=== PATIENT | female | born 1955 | race African-American/Black ===

== ENCOUNTER 2019-02-06 22:08 | Inpatient (IN) | payer MEDICARE, MEDICAID, SELFPAY ==
--- NOTE | ~2019-02-06 | XR_ITS ---
EXAMINATION: XR chest 2V DATE: 02/06/2019 23:22 INDICATION: Cough and shortness of breath TECHNIQUE: PA and lateral views of the chest are obtained. COMPARISON: 06/26/2015 FINDINGS: The lungs are hyperinflated. There are airspace opacities in the right middle and lower lob es. There is no pleural effusion or pneumothorax. The cardiomediastinal silhouette is normal. Surgica l clips are again noted in the medial left breast. There is mild thoracic spondylosis. IMPRESSION: 1. Airspace opacities of the right middle and lower lobes, likely pneumonia. Reviewed, dictated and finalized at location A. ER INSPECTOR
--- NOTE | ~2019-02-06 | CT_ITS ---
EXAMINATION: CTA chest PE protocol DATE: 02/08/2019 09:35 INDICATION: Shortness of breath. Pneumonia. TECHNIQUE: Computed tomography angiography (CTA) of the chest was performed with 100 mL Omnipaque-350 intravenous contrast timed to evaluate the pulmonary arteries. Coronal maximum intensity projection 3D-reconstructions were created by the technologist. Automated exposure control and iterative reconst ruction technique were employed. The dose-length product was 149.91 mGy-cm. COMPARISON: Chest 2 views 02/06/2019 FINDINGS: There is mild scarring at the lung apices. There is mild bronchiectasis in the lungs with a n inferior predominance. There is mucous plugging in lingula. There are tree-in-bud opacities and arthur trilobular nodules in lingula. There are airspace and groundglass opacities, centrilobular nodules, a nd tree-in-bud opacities in right lower lobe and right middle lobe. There is mucous plugging in right lower lobe. No pleural effusion. The heart size is normal. No pericardial effusion. There are sutton ry artery calcifications. There is no pulmonary embolus. Subcarinal lymphadenopathy is noted. There i s thoracic levocurvature and mild spondylosis. IMPRESSION: 1. No pulmonary embolus. 2. Pneumonia involving right lower lobe, right middle lobe, and lingula. 3. Mild bronchiectasis in the lungs with a lower lung predominance, likely secondary to repeated infe ctions. 4. Subcarinal lymphadenopathy, likely reactive. Reviewed, dictated and finalized at location A. RIAL HANDLER 1ST SHIFT IMPRESSION: 1. No pulmonary embolus. 2. Pneumonia involving right lower lobe, right middle lobe, and lingula. 3. Mild bronchiectasis in the lungs with a lower lung predominance, likely seco ndary to repeated infections. 4. Subcarinal lymphadenopathy, likely reactive.
[2019-02-06 22:09] VITALS: BP 131/79; PULSE 120; RESP 22; TEMP 38.6; O2SAT 96
--- NOTE | 2019-02-06 22:31 | ED.URI ---
HPI - URI/Sore Throat General Chief Complaint: Upper Respiratory Infection Stated Complaint: congestion/cough Time Seen by Provider: 02/06/19 22:28 Source: patient and RN notes reviewed Mode of arrival: ambulatory Limitations: no limitations History of Present Illness HPI Narrative: Pt is a 63 y/o female presenting to the ED c/o cough. Pt reports she has been experiencing a productive cough with green phlegm for more than a week, and notes it has recently worsened. Pt also reports SOB at rest, bilateral rib pain, palpitations, wheezing, rhinorrhea, and congestion, but denies N/V, ST, or diarrhea. Pt states she has a Hx of Chelonae, but notes she has not been keeping up with her treatments due to having cancer. Pt notes she currently has cancer in her lymph nodes, and reports she was cancer free for 17 years from having Breast Cancer with metastasis to her Kidney and Colon. Pt states her Oncologist is Dr. Beebe at [facility], and she last had Chemotherapy a few months ago. Pt states she also has a Hx of PNA, but denies Hx's of ID, cardiac stents, CHF, smoking, alcohol use, or drug use. Pt states she has positive sick contact with her grandson who has cold Sx's. Pertinent past history: pneumonia and other (Chelonae) Onset (ago): week(s) ( More than 1 ) Consistency: progressively worsening Description of mucous: green Context: sick contacts (Grandson has cold Sx's) Associated symptoms: rhinorrhea, nasal congestion, shortness of breath and other (Bilateral rib pain; palpitations; wheezing) Related Data Allergies Allergy/AdvReac Type Severity Reaction Status Date / Time No Known Allergies Allergy Unverified 06/28/17 11:24 Review of Systems Review of Systems: All systems reviewed & are unremarkable except as noted in HPI and below ENT: Reports nasal congestion, Denies sore throat and Reports other (Rhinorrhea) Cardiovascular: Cardiovascular: Reports palpitations Respiratory: Respiratory: Reports cough (Productive with green phlegm), Reports dyspnea and Reports wheezing Gastrointestinal: Gastrointestinal: Denies diarrhea, Denies nausea and Denies vomiting Musculoskeletal: Musculoskeletal: Reports other (Bilateral rib pain) [facility] Past Medical History Medical History (Updated 02/07/19 @ 04:07 by Jigna Ireland MD) Breast cancer With metastasis to Colon and Kidney Depression History of chemotherapy Lymph node cancer Mycobacterium chelonae infection Pneumonia Surgical History Surgical History History of History of intestinal surgery Colon resection due to cancer History of modified radical mastectomy of left breast Social History Social History Smoking status: Never smoker Alcohol intake: never Substance use: never Gender identity (if verbalized by the patient): Female Exam Const: General: no acute distress and alert; No ill appearing Orientation/consciousness: oriented x3 HENMT: Head: normal to inspection, no palpable skull fracture and normocephalic Ears: hearing grossly normal bilaterally, external ears normal and TM's normal bilaterally General nose exam: external nose normal Face and sinus: normal facial exam and sinuses nontender Mouth: Yes moist mucous membranes Teeth and gingiva: edentulous Throat: posterior oropharynx normal and uvula midline Eyes: Conjunctivae: conjunctivae normal Pupils: PERRL Chest: Chest palpation & inspection: normal inspection of the chest Resp: Effort & Inspection: normal respiratory effort Auscultation: clear to auscultation bilaterally, no rales, no rhonchi and no wheezes Cardio: Rate: tachycardic Rhythm: regular rhythm Heart sounds: no murmurs GI: GI Palp: Yes soft, No tender, No guarding and No rigid Skin: General skin exam: normal color Rashes: no rashes Neuro: General: oriented x3, moves all extremities and CN's II-XI intact bilaterally Ex
--- NOTE | 2019-02-06 22:35 | ECG_ITS ---
Measurements Intervals [place] Rate: 104 P: 67 CO: 157 QRS: 54 QRSD: 77 T: 79 QT: 333 QTc: 439 Interpretive Statements SINUS TACHYCARDIA POSSIBLE LEFT ATRIAL ENLARGEMENT POSSIBLE LEFT VENTRICULAR HYPERTROPHY BORDERLINE ST-T WAVE ABNORMALITY- LATERAL LEADS ABNORMAL ECG Electronically Signed On 02-07-2019 6:59:18 OPERATIONS VICE PRESIDENT by Estuardo Barrett D.O.
[2019-02-06 22:40] VITALS: PULSE 102; RESP 20
[2019-02-06] MEDS: ALBUTEROL SULFATE NEB 2.5 MG/0.5 ML INH 5 MG INHALATION (22:50)
[2019-02-06] MEDS: SODIUM CHLORIDE 0.9% IV 1,000 ML 999 ML IV CONT (22:50)
[2019-02-06 22:55] VITALS: PULSE 101; RESP 20
[2019-02-06 23:02] VITALS: PULSE 98; RESP 20
[2019-02-06 23:03] LABS: Basophils Percent Auto 0.3 % (0.2-1.2); Eosinophils Percent Auto 0.1 % (0-4.4); Hematocrit 39.4 % (37.0-47.0); Hemoglobin 12.4 g/dL (12.0-15.0); Immature Granulocyte Absolute 0.03 K/mm3 (0.00-0.031); Immature Granulocyte Percent A 0.3 % (0-0.5); Lymphocytes Absolute Auto 0.63 K/mm3 (0.9-3.2); Lymphocytes Percent Auto 5.8 % (18.3-44.2); Mean Corpuscular HGB Conc 31.5 g/dl (32-36); Mean Corpuscular Hemoglobin 29.1 pg (26-34); Mean Corpuscular Volume 92.5 fl (80-100); Mean Platelet Volume 9.6 fl (7.4-10.4); Monocytes Absolute Auto 0.7 K/mm3 (0.1-0.6); Monocytes Percent Auto 6.2 % (2.6-8.5); Neutrophils Absolute Auto 9.5 K/mm3 (1.3-6.7); Neutrophils Percent Auto 87.3 % (45.5-73.1); Platelet Count Result 404 k/mm3 (150-375); Red Blood Count 4.26 M/mm3 (4.2-5.4); Red Cell Distribution Width 14.1 % (11.5-14.5); White Blood Count 10.8 K/mm3 (4.5-10.0)
[2019-02-06 23:16] LABS: Alanine Aminotransferase 13 U/L (4-35); Albumin Level 3.9 g/dL (3.5-5.1); Alkaline Phosphatase 102 U/L (38-126); Aspartate Amino Transferase 19 U/L (14-36); Bilirubin,Total 0.5 mg/dL (0.2-1.3); Blood Urea Nitrogen 14 mg/dL (7-17); Calcium 9.1 mg/dL (8.4-10.2); Carbon Dioxide 31 mmol/L (22-30); Chloride 101 mmol/L (98-107); Estimated Glomerular Filt Rate > 60; Glucose 151 mg/dL (65-105); Potassium 3.6 mmol/L (3.4-5.0); Sodium 140 mmol/L (137-145)
[2019-02-07] VITALS (16 sets, daily range): BP systolic 105–124; BP diastolic 62–77; PULSE 90–106; RESP 16–23; TEMP 37.2–38.7; O2SAT 93–100; BMI 17.6
[2019-02-07 00:52] LABS: Add Urine Microscopic? NO; Appearance Urine Clear (Clear); Bilirubin Urine Negative (Negative); Blood Urine Negative (Negative); Color Urine Straw (Yellow); Glucose Urine UA Negative (Negative); Ketones Urine Negative (Negative); Leukocyte Esterase Ur Negative LEU/UL (Negative); Nitrate Urine Negative (Negative); Protein Urine Negative (Negative); Specific Grav Ur 1.011 (1.001-1.035); Urobilinogen Urine Negative mg/dL (<2.0)
[2019-02-07] MEDS: LACTATED RINGERS 1,000 ML 125 ML IV CONT ×2 (04:04→18:35)
--- NOTE | 2019-02-07 04:56 | ADMGEN ---
This patient, Sandy Singer, was admitted to 2 Medical Room 254-01. Patient/family oriented to hospital policies and general routines including ID bracelet, bed and alarms, visiting hours, pain management, procedures, bathroom and other care routines, personal items, smoking policy, room service/diet, and visiting hours. Valuables list has been completed. Information on how to activate the Rapid Response Team has been discussed. Patient/Family are encouraged to report perceived risks to care and to ask questions if they do not understand what they are told or what they should do. Admit time 0400
[2019-02-07] MEDS: ALBUTEROL SULFATE NEB 2.5 MG/0.5 ML INH 5 MG INHALATION ×3 (07:46→21:36)
[2019-02-07] MEDS: IPRATROPIUM BR 0.02% INH SOLN 0.5 MG/2.5 ML VIAL INHALATION ×3 (07:46→21:36)
--- NOTE | 2019-02-07 13:52 | PM.IMHP ---
H&P: HPI History of Present Illness Chief complaint: Cough, shortness of breath Narrative: Date of Service: 02/07/19 1030 This supervising physician for this history and physical is Dr. Darian Mckeon. Ms. Singer is a 63yo F with history of metastatic breast cancer who presented to the ED for evaluation of shortness of breath and productive cough that began 1 week ago. She reports she has been coughing up thick white mucus over the last week and her cough had been getting worse. She reported she felt okay at rest, but gets short of breath with walking. She reports 1 episode of nonbloody diarrhea this morning but no diarrhea prior to that. She denies any nausea, vomiting, fever or chills. She reports her grandson had cold-like symptoms recently. She tells me she has been homeless and most recently has been staying with friends. She reports a history of having pneumonia in the past, specifically a mycobacterium infection. She denies any chest pain, lightheadedness, or dizziness. She describes some abdominal discomfort which she attributes to excessive coughing. Chest x-ray demonstrates airspace opacities in right middle and lower lobes consistent with pneumonia. Patient is being admitted for pneumonia and sepsis and I suspect she will require at least a 2 midnight stay for same. Review of Systems Review of Systems: Narrative: Patient reports productive cough and worsening shortness of breath over the last 1 week. She denies any nausea, vomiting, or constipation. She had 1 episode of diarrhea this morning which is new. No chest pain or calf tenderness. Twelve systems were reviewed with pertinent positives and negatives as per HPI. Except as documented, all other systems were reviewed and are negative. [facility] Past Medical History Medical History Breast cancer First diagnosed around 1996. With metastasis to Colon and Kidney. Had resection of colon mass and L mastectomy; reports she was in remission for many years until last year when they found cancer in R axillary lymph nodes. Depression History of chemotherapy Lymph node cancer Oncologist is Dr Beebe at [facility]. Last saw Dec 2018. Patient reports she has completed chemo and radiation for this. Mycobacterium chelonae infection Pneumonia Surgical History Surgical History History of History of intestinal surgery Colon resection due to cancer - she thinks around 2015 History of modified radical mastectomy of left breast She believes 1996 Family History Family History Mother Congestive heart failure Mother Diabetes mellitus Sibling Pancreatitis Father Throat cancer Social History Social History (Updated 02/07/19 @ 14:12 by Klaudia Vale PA-C) Social History: Ms. Singer reports she is homeless and has most recently been living with friends. To me, she denies alcohol or substance use, however ED note mentions cocaine use. She reports never smoker. She designates her daughter, Rosangela, to be her surrogate decision maker. She reports her PCP is Dr [facility]lesia [facility]eda in [facility]. Smoking status: Never smoker Alcohol intake: never Substance use: former Substance use type: crack/cocaine Last use: 01/29/2019 Gender identity (if verbalized by the patient): Female Spiritual care concerns: No Agree to blood products: Yes Meds Home Medications and Allergies Home Medications Medication Instructions Recorded Confirmed Type anastrozole 1 mg PO DAILY 02/07/19 02/07/19 History Allergies Allergy/AdvReac Type Severity Reaction Status Date / Time No Known Allergies Allergy Unverified 06/28/17 11:24 Vital Signs Vital Signs - 24 hr 02/06/19 22:09 02/06/19 22:40 02/06/19 22:55 Temperature 101.4 F H Pulse Rate 120 H 102 H 101 H Respiratory Rat
[2019-02-07] MEDS: ACETAMINOPHEN 325 MG TABLET 650 MG PO (21:32)
[2019-02-08] VITALS (16 sets, daily range): BP systolic 128–142; BP diastolic 76–83; PULSE 82–174; RESP 16–22; TEMP 36.8–38.2; O2SAT 94–100
[2019-02-08] MEDS: ALBUTEROL SULFATE NEB 2.5 MG/0.5 ML INH 5 MG INHALATION (02:22)
[2019-02-08] MEDS: IPRATROPIUM BR 0.02% INH SOLN 0.5 MG/2.5 ML VIAL INHALATION ×4 (02:22→19:51)
--- NOTE | 2019-02-08 05:07 | ECG_ITS ---
Measurements Intervals [place] Rate: 163 P: -72 LA: 116 QRS: 54 QRSD: 77 T: 249 QT: 289 QTc: 476 Interpretive Statements ECTOPIC ATRIAL TACHYCARDIA BORDERLINE ST ABNORMALITY- LATERAL LEADS ABNORMAL ECG Electronically Signed On 02-08-2019 6:39:28 LUMP RECEIVER by Estuardo Barrett D.O.
[2019-02-08 05:29] LABS: Basophils Percent Auto 0.4 % (0.2-1.2); Eosinophils Percent Auto 0.2 % (0-4.4); Hematocrit 36.9 % (37.0-47.0); Hemoglobin 11.6 g/dL (12.0-15.0); Immature Granulocyte Absolute 0.03 K/mm3 (0.00-0.031); Immature Granulocyte Percent A 0.4 % (0-0.5); Lymphocytes Absolute Auto 0.71 K/mm3 (0.9-3.2); Lymphocytes Percent Auto 8.4 % (18.3-44.2); Mean Corpuscular HGB Conc 31.4 g/dl (32-36); Mean Corpuscular Volume 92.3 fl (80-100); Mean Platelet Volume 9.7 fl (7.4-10.4); Monocytes Absolute Auto 0.9 K/mm3 (0.1-0.6); Monocytes Percent Auto 10.4 % (2.6-8.5); Neutrophils Absolute Auto 6.8 K/mm3 (1.3-6.7); Neutrophils Percent Auto 80.2 % (45.5-73.1); Platelet Count Result 396 k/mm3 (150-375); Red Cell Distribution Width 13.8 % (11.5-14.5); White Blood Count 8.4 K/mm3 (4.5-10.0)
[2019-02-08] MEDS: METOPROLOL TARTRATE INJ 5 MG/5 ML VIAL IV PUSH (05:43)
[2019-02-08] MEDS: LACTATED RINGERS 1,000 ML 125 ML IV CONT ×2 (05:43→15:49)
[2019-02-08 05:50] LABS: Alanine Aminotransferase 16 U/L (4-35); Albumin Level 3.5 g/dL (3.5-5.1); Alkaline Phosphatase 103 U/L (38-126); Aspartate Amino Transferase 21 U/L (14-36); Bilirubin,Total 0.4 mg/dL (0.2-1.3); Blood Urea Nitrogen 8 mg/dL (7-17); Calcium 9.1 mg/dL (8.4-10.2); Carbon Dioxide 29 mmol/L (22-30); Chloride 103 mmol/L (98-107); Estimated CRCL calculation 66 ml/min; Estimated Glomerular Filt Rate > 60; Glucose 111 mg/dL (65-105); Potassium 3.5 mmol/L (3.4-5.0); Sodium 142 mmol/L (137-145)
[2019-02-08] MEDS: ACETAMINOPHEN 325 MG TABLET 650 MG PO (06:12)
[2019-02-08] MEDS: POTASSIUM CHLORIDE 20 MEQ TABLET 40 MEQ PO (08:13)
[2019-02-08 09:08] LABS: Magnesium 1.7 mg/dL (1.6-2.3)
[2019-02-08] MEDS: MAGNESIUM SULF 2 GM/WATER 50ML 2 GM/50 ML BAG IVPB (14:10)
--- NOTE | 2019-02-08 15:16 | PM.IMPN ---
Progress Note: A&P Assessment and Plan (1) Pneumonia: Qualifiers: Laterality: right Lung location: middle lobe of lung Pneumonia type: due to unspecified organism Qualified Code(s): J18.9 - Pneumonia, unspecified organism Code(s): J18.9 - Pneumonia, unspecified organism Status: Acute Assessment and Plan: Patient presents with worsening productive cough and shortness of breath. CXR reveals findings consistent with pneumonia. Sputum culture, strep and Legionella antigens pending. Blood cultures pending with no growth to date. Continue azithromycin and Rocephin, bronchodilator therapy with duo nebs, Tylenol for fevers. Albuterol switched to Xopenex due to tachycardia. (2) Sepsis: Qualifiers: Sepsis acute organ dysfunction status: without acute organ dysfunction Sepsis type: sepsis due to unspecified organism Qualified Code(s): A41.9 - Sepsis, unspecified organism Code(s): A41.9 - Sepsis, unspecified organism Status: Acute Assessment and Plan: Evident on arrival by leukocytosis, tachycardia, fever. Suspected source is respiratory. See above. (3) Lymph node cancer: Code(s): C77.9 - Secondary and unspecified malignant neoplasm of lymph node, unspecified Status: Acute Assessment and Plan: Patient was diagnosed with breast cancer 1996 that was metastatic to kidneys and colon. She reports she underwent colon resection around 3 years ago and in the last 1 year, has been being treated for malignancy of right axillary lymph nodes. Her oncologist is Dr Bose at [facility] who she reports she last saw about 1 month ago. She reports she has recently completed chemotherapy and radiation for the lymph nodes. (4) Homeless: Code(s): Z59.0 - Homelessness Status: Acute Assessment and Plan: Patient reports being homeless, sounds like she has been staying with friends most recently. She reports she does not live with her daughter because she does not like her daughter's boyfriend. Care coordination aware. (5) BMI less than 19,adult: Code(s): Z68.1 - Body mass index (BMI) 19.9 or less, adult Status: Acute Assessment and Plan: Discussed with camouflage assembler. Continue regular diet and supplements. (6) Sinus tachycardia: Code(s): R00.0 - Tachycardia, unspecified Status: Acute Assessment and Plan: Noted to have rates up to 160 early this morning and EKG was obtained. EKG reviewed by MD noted to be in sinus tachycardia. Infection and albuterol nebulizers may be contributing. Albuterol switched to Xopenex. CTA chest negative for pulmonary embolism. Dosed IV Lopressor early this morning and she responded well. Rate was elevated again this afternoon and IV Lopressor was ordered, but rate improved to 100 prior to administering the 2nd dose of Lopressor so it was not given. Will monitor. (7) DVT prophylaxis: Code(s): Z29.9 - Encounter for prophylactic measures, unspecified Status: Acute Assessment and Plan: SCDs Subjective Date/time seen: 02/08/19 1345 Ms. Singer is a 63yo F admitted for pneumonia. She reports feeling okay today, about the same as yesterday. She continues with shortness of breath and productive cough. She denies chest pain, abdominal pain, nausea, vomiting, or calf tenderness. Review of Systems Review of Systems: Narrative: Twelve systems were reviewed with pertinent positives and negatives as per HPI. Exam Narrative: Exam Narrative: General: Thin, ill-appearing female resting supine in bed in no acute distress. HEENT: Normocephalic, atraumatic, EOMI, oropharynx clear. Neck: Supple. Chest: Coarse breath sounds bilaterally, deep breath illicits cough on exam. Respirations are even and n
[2019-02-09] VITALS (8 sets, daily range): BP systolic 118–123; BP diastolic 71–76; PULSE 91–111; RESP 16–20; TEMP 37.1–37.2; O2SAT 100
[2019-02-09] MEDS: LACTATED RINGERS 1,000 ML 125 ML IV CONT ×2 (01:30→09:11)
[2019-02-09] MEDS: IPRATROPIUM BR 0.02% INH SOLN 0.5 MG/2.5 ML VIAL INHALATION ×3 (01:51→13:36)
[2019-02-09] MEDS: ACETAMINOPHEN 325 MG TABLET 650 MG PO (02:22)
[2019-02-09 05:49] LABS: Blood Urea Nitrogen 11 mg/dL (7-17); Calcium 9.1 mg/dL (8.4-10.2); Carbon Dioxide 31 mmol/L (22-30); Chloride 105 mmol/L (98-107); Estimated CRCL calculation 66 ml/min; Estimated Glomerular Filt Rate > 60; Glucose 86 mg/dL (65-105); Potassium 3.9 mmol/L (3.4-5.0); Sodium 142 mmol/L (137-145)
--- NOTE | 2019-02-09 14:22 | PCDIET ---
Nutrition Follow-Up Complete: Inadequate oral intake as related to pneumonia/stress as evidenced by weight loss reported of 20ibs in the past month. Adequate Intake of at least 75% of meals Goal: Pt current nutrition is Regular. Nutrition recommendation: Continue with current diet. Pt requested double protein portions and will change ensure compact to ensure enlive. Last recorded weight is 59.1 kg. Bowel Motility: 02/08 Labs Reviewed:Review no pertinent lab values Meds Noted:zofrlux, Abx Additional Notes: Pt average meal intake is 65%. Pt did request double protein portions, and enlive not compact. Will continue to monitor intake. Will montior every 3 days.
--- NOTE | 2019-02-09 17:58 | PM.DS ---
DS: Diagnosis Admitting Diagnosis Admitting Diagnosis: Sepsis, unspecified organism Discharge Diagnosis (1) Pneumonia: Qualifiers: Laterality: right Lung location: middle lobe of lung Pneumonia type: due to unspecified organism Qualified Code(s): J18.9 - Pneumonia, unspecified organism Code(s): J18.9 - Pneumonia, unspecified organism Status: Acute Assessment and Plan: Date of Service 02/09/19: Ms. Singer is a 63yo F with history of metastatic breast cancer and currently with involvement in the axillary lymph nodes who presented to the ED for evaluation of cough and shortness of breath. Imaging showed evidence of pneumonia and she was started on azithromycin and rocephin. She was treated with bronchodilator therapy with duo nebs. She was noted to be tachycardic and EKG was obtained, rhythm was sinus. It was felt that her tachycardia was related to infection and albuterol nebulizers. Her symptoms improved with the therapy outlined above and she was hemodynamically stable for discharge 02/08/19. She was instructed to follow up with PCP in 1-2 weeks and her oncologist as scheduled. She noted she had been homeless this year, but has been staying at different friend's homes and has not had to sleep outside. She also uses cocaine. She was given resources by care coordination but patient is on waiting lists already for shelters. Patient presents with worsening productive cough and shortness of breath. CXR reveals findings consistent with pneumonia. Sputum culture, strep and Legionella antigens pending. Blood cultures pending with no growth to date. Treated with azithromycin and Rocephin, bronchodilator therapy with duo nebs, Tylenol for fevers. Albuterol switched to Xopenex due to tachycardia. Discharged with oral augmentin to complete the course. (2) Sepsis: Qualifiers: Sepsis acute organ dysfunction status: without acute organ dysfunction Sepsis type: sepsis due to unspecified organism Qualified Code(s): A41.9 - Sepsis, unspecified organism Code(s): A41.9 - Sepsis, unspecified organism Status: Acute Assessment and Plan: Evident on arrival by leukocytosis, tachycardia, fever. Suspected source is respiratory. See above. (3) Lymph node cancer: Code(s): C77.9 - Secondary and unspecified malignant neoplasm of lymph node, unspecified Status: Acute Assessment and Plan: Patient was diagnosed with breast cancer 1996 that was metastatic to kidneys and colon. She reports she underwent colon resection around 3 years ago and in the last 1 year, has been being treated for malignancy of right axillary lymph nodes. Her oncologist is Dr Bose at [facility] who she reports she last saw about 1 month ago. She reports she has recently completed chemotherapy and radiation for the lymph nodes. (4) Homeless: Code(s): Z59.0 - Homelessness Status: Acute Assessment and Plan: Patient reports being homeless, sounds like she has been staying with friends most recently. She reports she does not live with her daughter because she does not like her daughter's boyfriend. Care coordination provided resources. (5) BMI less than 19,adult: Code(s): Z68.1 - Body mass index (BMI) 19.9 or less, adult Status: Acute Assessment and Plan: Discussed with material handler 2nd shift. Continue regular diet and supplements. (6) Sinus tachycardia: Code(s): R00.0 - Tachycardia, unspecified Status: Acute Assessment and Plan: Noted to have rates up to 160 early this morning and EKG was obtained. EKG reviewed by noted to be in sinus tachycardia. Infection and albuterol nebulizers may be contributing. Albuterol switched to Xopenex. CTA chest negative for pulmonary embolism. Dosed IV Lopressor and she responde
[2019-02-10 15:07] LABS: Pneumococcal Antigen Urine Not Detected (Not Detected)
== END 2019-02-09 15:35 | disposition home or self-care (01) | DRG 194 ==
LOC: ANHED 22:37 → ANH2MED 02-07 04:07
PROVIDERS: Admitting Provider Internal Medicine; Emergency Provider General Practice; Visit Provider Physician Assistant
DX: J18.9 Pneumonia, unspecified organism (principal); C77.3 Secondary and unspecified malignant neoplasm of axilla and upper limb lymph nodes; R00.0 Tachycardia, unspecified; Z59.0 Homelessness; Z85.3 Personal history of malignant neoplasm of breast; Z85.038 Personal history of other malignant neoplasm of large intestine; Z85.528 Personal history of other malignant neoplasm of kidney
CPT/HCPCS: 36415; 71046; 71275; 80048; 80053; 81003; 83605; 83735; 85025; 87040; 87070; 87081; 87205; 87804; 87899; 93005; 94640; 96365; 96375; 99285; A9270; J0131; J0456; J0696; J3475; J7030; J7120; Q9967

== ENCOUNTER 2019-09-24 20:42 | Emergency (ER) | payer MEDICARE, MEDICAID, SELFPAY ==
--- NOTE | ~2019-09-24 | CT_ITS ---
EXAMINATION: CTA chest PE protocol EXAM DATE: 09/24/2019 22:18 INDICATION: Left axillary pain. Metastatic breast cancer. Unable to raise arm. TECHNIQUE: Spiral CTA of the chest (pulmonary arteries) was performed with 100 cc Omnipaque 350 intr avenous contrast injection. Images were acquired during the pulmonary arterial phase. Coronal maxi mum intensity projection 3D-reconstructions were created by the technologist on dedicated workstation . Axial, coronal and sagittal reformatted images were reviewed. The dose-length product (DLP) for t his examination was 238.62 mGy-cm. The exposure was tailored according to patient size (auto mA exp osure control), and iterative reconstruction (ASIR) was used as additional dose reduction technique. Comparison is made to prior examination from 02/08/2019. FINDINGS: Pulmonary arteries are well opacified and without intraluminal filling defects. No thor acic aortic dissection. The lungs are clear, previously seen pneumonia has resolved. There are no pleural or pericardial effusions. Tracheobronchial tree is patent. There is no mediastinal, hilar or axillary lymphadenopathy. There is no pneumothorax. Heart normal in size. There is mild cor onary arterial calcification, arterial sclerosis. Upper abdomen is unremarkable. There is thoracic spondylosis without osteoblastic or osteolytic lesions identified. IMPRESSION: 1. No pulmonary emboli or acute cardiopulmonary findings. Reviewed, dictated and finalized at location G.
[2019-09-24 20:44] VITALS: BP 159/92; PULSE 82; RESP 14; TEMP 37.1; O2SAT 100
--- NOTE | 2019-09-24 21:56 | ED.GENADULT ---
HPI - General Adult General Chief complaint: Unspecified Stated complaint: right arm pain Time Seen by Provider: 09/24/19 21:05 History of Present Illness HPI narrative: Patient presents with a history of metastatic breast cancer. She says she has right axillary pain. She said it is deep inside, goes up to her shoulder. She gauges the pain at 8 out of 10. She says her cancer is in remission, and she is not currently getting treatment. Onset (ago): day(s) Location: chest Radiation: extremity Severity: moderate Relieving factors: none Exacerbating factors: none Associated symptoms: denies other symptoms Treatments prior to arrival: other (She took a Midol and it helped some.) Related Data Home Medications Medication Instructions Recorded Confirmed anastrozole 1 mg PO DAILY 09/24/19 09/24/19 atorvastatin 20 mg PO HS 09/24/19 09/24/19 calcium carbonate [Calcium 600] 600 mg PO DAILY 09/24/19 09/24/19 carvedilol 6.25 mg PO BID 09/24/19 09/24/19 Allergies Allergy/AdvReac Type Severity Reaction Status Date / Time No Known Allergies Allergy Unverified 09/24/19 21:14 Review of Systems Review of Systems: Narrative: CONSTITUTIONAL: Denies fever, chills, or sweats. EYES: Denies visual changes, redness, or discharge. ENT: Denies rhinorrhea, congestion, sore throat, or otalgia. CARDIOVASCULAR: Denies chest pain, palpitations, or edema. RESPIRATORY: Denies cough or dyspnea. GASTROINTESTINAL: Denies abdominal pain, nausea, vomiting, or diarrhea. GENITOURINARY: Denies dysuria or hematuria. She does have frequency. SKIN: Denies rash or itching. MUSCULOSKELETAL: Denies back pain, joint pain, or myalgia. NEUROLOGIC: Denies headache, numbness, or weakness. . All systems reviewed & are unremarkable except as noted in HPI and below PMFSH Past Medical History Medical History Breast cancer First diagnosed around 1996. With metastasis to Colon and Kidney. Had resection of colon mass and L mastectomy; reports she was in remission for many years until last year when they found cancer in R axillary lymph nodes. Depression History of chemotherapy Lymph node cancer Oncologist is Dr Beebe at [facility]. Last saw Dec 2018. Patient reports she has completed chemo and radiation for this. Mycobacterium chelonae infection Pneumonia Surgical History Surgical History History of History of intestinal surgery Colon resection due to cancer - she thinks around 2015 History of modified radical mastectomy of left breast She believes 1996 Social History Social History Social History: Ms. Singer reports she is homeless and has most recently been living with friends. To me, she denies alcohol or substance use, however ED note mentions cocaine use. She reports never smoker. She designates her daughter, Rosangela, to be her surrogate decision maker. She reports her PCP is Dr Iglesia Castañeda in [facility]. Smoking status: Never smoker Alcohol intake: never Substance use: former Substance use type: crack/cocaine Last use: 01/29/2019 Gender identity (if verbalized by the patient): Female Spiritual care concerns: No Agree to blood products: Yes Exam Narrative: Exam Narrative: GENERAL: Well-appearing, well-nourished, and in no acute distress. Very pleasant lady. HEAD: Normocephalic, atraumatic. EYES: PERRLA and EOMI. ENT: Nares clear, no rhinorrhea or epistaxis. Mucous membranes moist. NECK: Supple. CHEST: Clear to auscultation. No respiratory distress. No lymphadenopathy palpable. HEART: Regular rate and rhythm. No murmur heard. Normal peripheral pulses. ABDOMEN: Soft, nontender, nondistended, normal active bowel sounds. EXTREMITIES: Normal range of motion. No edema. SKIN: Warm, dry, no rash. NEURO: No focal deficits. Alert and oriented x3. PSYCH: Normal m
[2019-09-24 21:57] LABS: Basophils Percent Auto 0.4 % (0.2-1.2); Eosinophils Absolute Auto 0.3 K/mm3 (0-0.3); Eosinophils Percent Auto 6.6 % (0-4.4); Hematocrit 43.7 % (37.0-47.0); Immature Granulocyte Absolute 0.02 K/mm3 (0.00-0.031); Immature Granulocyte Percent A 0.4 % (0-0.5); Lymphocytes Absolute Auto 1.51 K/mm3 (0.9-3.2); Lymphocytes Percent Auto 31.1 % (18.3-44.2); Mean Corpuscular Volume 93.8 fl (80-100); Mean Platelet Volume 9.9 fl (7.4-10.4); Monocytes Absolute Auto 0.5 K/mm3 (0.1-0.6); Monocytes Percent Auto 9.7 % (2.6-8.5); Neutrophils Absolute Auto 2.5 K/mm3 (1.3-6.7); Neutrophils Percent Auto 51.8 % (45.5-73.1); Platelet Count Result 339 k/mm3 (150-375); Red Blood Count 4.66 M/mm3 (4.2-5.4); Red Cell Distribution Width 13.9 % (11.5-14.5); White Blood Count 4.9 K/mm3 (4.5-10.0)
[2019-09-24 22:10] LABS: Alanine Aminotransferase 28 U/L (4-35); Albumin Level 4.5 g/dL (3.5-5.1); Alkaline Phosphatase 113 U/L (38-126); Anion Gap 9.5 mmol/L (7-16); Aspartate Amino Transferase 29 U/L (14-36); Bilirubin,Total 0.4 mg/dL (0.2-1.3); Blood Urea Nitrogen 15 mg/dL (7-17); Calcium 9.9 mg/dL (8.4-10.2); Carbon Dioxide 35 mmol/L (22-30); Chloride 100 mmol/L (98-107); Estimated CRCL calculation 67 ml/min; Estimated Glomerular Filt Rate > 60; Glucose 108 mg/dL (65-105); Potassium 4.5 mmol/L (3.4-5.0); Sodium 140 mmol/L (137-145)
[2019-09-24 22:18] LABS: Estimated CRCL calculation 67 ml/min; Estimated Glomerular Filt Rate > 60
[2019-09-24 22:52] VITALS: BP 153/100; PULSE 76; RESP 18; TEMP 36.6; O2SAT 100
[2019-09-24] MEDS: ACETAMINOPHEN 325 MG TABLET 650 MG PO (22:53)
== END 2019-09-24 23:00 | disposition home or self-care (01) ==
PROVIDERS: Emergency Provider Emergency Medicine; PCP Family Medicine
DX: R07.89 Other chest pain (principal); Z85.528 Personal history of other malignant neoplasm of kidney; Z85.3 Personal history of malignant neoplasm of breast; Z85.038 Personal history of other malignant neoplasm of large intestine; Z92.21 Personal history of antineoplastic chemotherapy; Z90.12 Acquired absence of left breast and nipple; Z90.49 Acquired absence of other specified parts of digestive tract; Z85.79 Personal history of other malignant neoplasms of lymphoid, hematopoietic and related tissues
CPT/HCPCS: 36415; 71275; 80053; 85025; 99284; A9270; Q9967

== ENCOUNTER 2020-04-16 17:05 | Emergency (ER) | payer MEDICARE, MEDICAID, SELFPAY ==
--- NOTE | 2020-04-16 17:34 | PC.NURSE ---
Pt up to triage desk states that she was here for an ultrasound and since they're not here any longer I'm just going to go . States will return either here or to [place] tomorrow.
== END 2020-04-16 17:37 | disposition left against medical advice (07) ==
LOC: ANHED 17:44
PROVIDERS: PCP Family Medicine
DX: Z53.21 Procedure and treatment not carried out due to patient leaving prior to being seen by health care provider (principal)
CPT/HCPCS: 99199